=== PATIENT | female | born 1955 | race Two or more races ===

== ENCOUNTER 2018-04-04 08:46 | Outpatient (CLI) | payer OTHER ==
[~2018-04-04 08:46] MED LIST: GLIPIZIDE5 MG PO; METFORMIN HCL500 MG PO; NORMODYNE100 MG PO; ZETIA10 MG PO; ZOCOR5 MG PO; [UNRECOGNIZED DRUG - OTHER]
== END 2018-04-04 08:51 | disposition home or self-care (01) ==
LOC: LAB 08:46
DX: C73 Malignant neoplasm of thyroid gland (principal); E89.0 Postprocedural hypothyroidism

== ENCOUNTER 2018-04-06 09:45 | Outpatient (CLI) | payer OTHER | END 2018-04-06 09:59 | disposition home or self-care (01) | LOC: NUCLEAR 09:45 | DX: C73 Malignant neoplasm of thyroid gland (principal) | CPT/HCPCS: 79005; A9517 ==

== ENCOUNTER 2018-04-10 14:35 | Outpatient (CLI) | payer OTHER | END 2018-04-10 14:36 | disposition home or self-care (01) | LOC: NUCLEAR 14:35 | DX: C73 Malignant neoplasm of thyroid gland (principal) ==

== ENCOUNTER 2018-05-15 08:49 | Outpatient (CLI) | payer OTHER | END 2018-05-15 08:56 | disposition home or self-care (01) | LOC: LAB 08:49 | DX: C73 Malignant neoplasm of thyroid gland (principal) ==

== ENCOUNTER → 2019-03-27 09:46 | Outpatient (CLI) | payer OTHER | END | disposition home or self-care (01) | LOC: LAB 09:46 | DX: C73 Malignant neoplasm of thyroid gland (principal); E89.0 Postprocedural hypothyroidism ==

== ENCOUNTER 2019-04-13 13:32 | Outpatient (CLI) | payer OTHER | END 2019-04-13 14:05 | disposition home or self-care (01) | LOC: NUCLEAR 13:32 | DX: C73 Malignant neoplasm of thyroid gland (principal) | CPT/HCPCS: 79005; A9517 ==

== ENCOUNTER 2019-10-31 06:10 | Day surgery (SDC) | payer OTHER ==
[~2019-10-31 06:10] MED LIST changes: +ASA81 MG PO; +ATACAND32 MG PO; +ATORVASTATIN CA80 MG PO; +CARDURA XL8 MG PO; +GLIPIZIDE XL10 MG PO; +JANUMET 50-1,01 EACH PO; +LABETALOL HCL200 MG PO; +MICROZIDE12.5 MG PO; +SYNTHROID88 MCG PO; +ULTRACET PO; +VITAMIN D310000 UNIT PO
== END 2019-10-31 13:25 | disposition home or self-care (01) ==
LOC: CIR.AMB 06:10
DX: S63.262A Dislocation of metacarpophalangeal joint of right middle finger, initial encounter (principal)

== ENCOUNTER 2022-04-02 07:45 | Inpatient (IN) | payer OTHER ==
[~2022-04-02] VITALS: Ht 157.5 cm; Wt 76.2 kg
[2022-04-02] MEDS ORDERED: JANUMET 50-1,01 EACH PO (10:44)
[2022-04-02] MEDS ORDERED: ZETIA10 MG PO (10:44)
[2022-04-02] MEDS ORDERED: MAXIMUM D3325 MCG PO (10:45)
[2022-04-02] MEDS ORDERED: HYDROCHLOROTHIA25 MG PO (10:46)
[2022-04-02] MEDS ORDERED: HYDROXYCHLOROQ200 MG PO (10:48)
[2022-04-02] MEDS ORDERED: SYNTHROID100 MCG PO (15:21)
== END 2022-04-08 17:54 | DRG 470 ==
LOC: SURH 04-06 07:00 → SURG 04-06 07:03 → O/R 04-06 07:03 → SURH 04-06 07:45 → SURG 04-06 11:29
PROVIDERS: ADMIT Orthopaedic Surgery; ATTEND Orthopaedic Surgery
PROC: 0SRD0J9 Replacement of Left Knee Joint with Synthetic Substitute, Cemented, Open Approach (ICD-10-PCS; principal; 2022-04-06 07:00)
DX: M17.12 Unilateral primary osteoarthritis, left knee (principal); D62 Acute posthemorrhagic anemia; M22.12 Recurrent subluxation of patella, left knee; I10 Essential (primary) hypertension; E66.8 Other obesity; E03.8 Other specified hypothyroidism; Z20.822 Contact with and (suspected) exposure to COVID-19